=== PATIENT | male | born 1950 | race Caucasian/White ===

== ENCOUNTER 2020-10-12 06:54 | Outpatient (NON) | payer BC, SELFPAY ==
[2020-10-13 00:44] LABS: SARS-CoV-2 RNA PCR Negative
== END 2020-10-12 06:55 ==
LOC: ANHCOVIDDT 07:18
PROVIDERS: PCP Family Medicine; Visit Provider Physician Assistant
DX: R05 Cough (principal); R51.9 Headache, unspecified; J02.9 Acute pharyngitis, unspecified; Z20.828 Contact with and (suspected) exposure to other viral communicable diseases
CPT/HCPCS: 87635; C9803; U0003

== ENCOUNTER → 2021-02-08 09:34 | Outpatient (CLI) | payer BC, SELFPAY ==
[2021-02-09 18:59] LABS: SARS-CoV-2 RNA PCR Negative
== END ==
PROVIDERS: PCP Family Medicine; Visit Provider Physician Assistant
DX: R52 Pain, unspecified (principal); Z20.822 Contact with and (suspected) exposure to COVID-19
CPT/HCPCS: C9803; U0003; U0005

== ENCOUNTER 2021-05-28 10:53 | Emergency (ER) | payer BC, SELFPAY ==
[2021-05-28 11:10] VITALS: BP 168/83; PULSE 62; RESP 16; TEMP 36.7; O2SAT 98
--- NOTE | 2021-05-28 11:23 | ED.SKABFB ---
HPI - Skin/Abscess/Foreign Bdy General Chief complaint: Skin/Abscess/Foreign Body Stated complaint: Rash Lt chest Source: patient Mode of arrival: ambulatory Limitations: no limitations History of Present Illness HPI narrative: Patient is a 70-year-old male who presents with a rash to left chest x7 days. He reports pruritic, burning and painful. He denies use of creams or [id number] antibiotics prior to arrival. He denies chest pain, shortness of breath, fever or other complaints. Patient is up-to-date on tetanus. MD complaint: rash Related Data Home Medications Medication Instructions Recorded Confirmed aspirin 81 mg chewable tablet 81 mg PO DAILY 10/06/20 05/28/21 clopidogrel 75 mg tablet 75 mg PO DAILY 10/06/20 05/28/21 Allergies Allergy/AdvReac Type Severity Reaction Status Date / Time Penicillins Allergy Unknown Skin Verified 10/06/20 15:41 Reaction BP MED Allergy Unknown UNKNOWN Uncoded 10/06/20 15:41 Review of Systems Review of Systems: Narrative: CONSTITUTIONAL: Denies fever, chills, or sweats. EYES: Denies visual changes, redness, or discharge. ENT: Denies rhinorrhea, congestion, sore throat, or otalgia. CARDIOVASCULAR: Denies chest pain, palpitations, or edema. RESPIRATORY: Denies cough or dyspnea. GASTROINTESTINAL: Denies abdominal pain, nausea, vomiting, or diarrhea. GENITOURINARY: Denies dysuria or hematuria. SKIN: Rash to left chest MUSCULOSKELETAL: Denies back pain, joint pain, or myalgia. NEUROLOGIC: Denies headache, numbness, dizziness, or weakness. PSYCHIATRIC: Denies anxiety or depression. [facility] Family History Family History Mother Diabetes mellitus, Onset Age: 72 Hypertension, Onset Age: 72 Family history of coronary artery disease, Onset Age: 72 Sibling Patient's brother is in good health Family history of cardiovascular disease, Onset Age: 45 Grandparent Family history of cardiovascular disease Acute myocardial infarction Malignant neoplasm of prostate Family history of congestive heart failure Father Family history of cardiovascular disease, Onset Age: 84 Family history of coronary artery disease, Onset Age: 84 Family history of congestive heart failure, Onset Age: 84 Social History Social History Smoking status: Never smoker Alcohol intake: current Gender identity (if verbalized by the patient): Male Comments At the time of signature, I have reviewed and agree with nursing past medical, surgical, social, and family history unless otherwise noted. Please see nursing chart for further information. There is no relevant family history pertinent to the presenting complaint. Exam Narrative: Exam Narrative: GENERAL: Well-appearing, well-nourished, and in no acute distress. HEAD: Normocephalic, atraumatic. EYES: EOMI. No redness or drainage. Conjunctiva are normal. ENT: Mucous membranes pink and moist. Nares clear. No rhinorrhea. TMs normal bilaterally. Throat normal. Uvula midline. NECK: AROM. Supple. No lymphadenopathy. CHEST: No respiratory distress. Clear to auscultation. HEART: Regular rate and rhythm. No murmur appreciated. Normal peripheral pulses. GI: Soft, nontender without rebound, or guarding. No distention. Bowel sounds normal in all quadrants. MUSCULOSKELETAL: No bony tenderness. EXTREMITIES: Normal range of motion. No edema. SKIN: erythematous, maculopapular rash with vesicles to T4-5 dermatomes of left chest NEURO: No focal deficits. Alert and oriented x3. Gait steady. PSYCH: Normal affect. No signs of depression or anxiety. Course Vital Signs Vital signs: Vital Signs Temperature 36.7 C 05/28/21 11:10 Pulse Rate 62 05/28/21 11:10 Respiratory Rate 16 05/28/21 11:10 Blood Pressure 168/83 H 05/28/21 11:10 Pulse Oximetry 98 05/28/21 11:10 Temperature 36.7 C
== END 2021-05-28 11:37 | disposition home or self-care (01) ==
PROVIDERS: Emergency Provider Nurse Practitioner; PCP Family Medicine
DX: B02.9 Zoster without complications (principal); I25.10 Atherosclerotic heart disease of native coronary artery without angina pectoris; Z95.5 Presence of coronary angioplasty implant and graft; I10 Essential (primary) hypertension; K21.9 Gastro-esophageal reflux disease without esophagitis
CPT/HCPCS: 99213; G0463